=== PATIENT | female | born 1945 | race Caucasian/White ===

== ENCOUNTER 2021-11-26 18:13 | Emergency (ER) | payer OTHER ==
[~2021-11-26] VITALS: Ht 157.5 cm; Wt 94.8 kg
--- NOTE | 2021-11-26 18:16 | NUR ---
PT ANUPAM VIA GURNEY TO BED 12.
[2021-11-26 18:28] VITALS: BP 186/76
--- NOTE | 2021-11-26 19:17 | NUR ---
pt placed on bed lam for urine collection.
--- NOTE | 2021-11-26 19:17 | NUR ---
75 y/o female biba, pt presents to ed with c/o mid back pain and general body pain that started 2 weeks ago. pt states she was seen at [facility] 3 times for same s/s. a&ox4, states she is unable to ambulate. heart sounds regular and even, lung sounds bl clear. per odette daughter, she was notified by [facility] that pt was seen an hour prior to arrival here and was being treated for uti. pt denies any urinary s/s. daughter pt was upset and left before dx, meds and paperwork. rx antibiotic was sent to [facility] facility per odette daughter. ermd made aware of status. pmh: htn, hld, seizure, hernia, dm2 nka med: see list
[2021-11-26 20:01] LABS: BILIRUBIN,URINE NEGATIVE (NEGATIVE); BLOOD, URINE NEGATIVE (NEGATIVE); COLOR,URINE YELLOW (YELLOW); LEUKOCYTE ESTERASE ,URINE 1+ (NEGATIVE); NITRITE, URINE NEGATIVE (NEGATIVE); PH,URINE 7.5 (5.0-9.0); UGLUCOSE NEGATIVE (NEGATIVE)
[2021-11-26 20:04] LABS: APPEARANCE,URINE HAZY (CLEAR)
[2021-11-26] MEDS ORDERED: KETOROLAC 30 MG/ML VIAL IM ONE (20:10)
[2021-11-26 20:16] LABS: RBC,URINE NONE SEEN /HPF (0-5)
--- NOTE | 2021-11-26 20:18 | NUR ---
RED WAN called her family.
[2021-11-26] MEDS ORDERED: hydrALAZINE 20 MG/ML VIAL IM ONE (20:20)
--- NOTE | 2021-11-26 20:22 | NUR ---
RED WAN explain results and treatment plans.
--- NOTE | 2021-11-26 20:52 | NUR ---
Patient 's family at bedside.
[2021-11-26 21:05] VITALS: BP 164/81
--- NOTE | 2021-11-26 21:05 | NUR ---
Patient discharged with v/s stable. Written and verbal after care instructions given and explained. Patient verbalized understanding. Wheel Chair Assisted with to car. All questions addressed prior to discharge. Advised to follow up with PMD.
== END 2021-11-26 21:05 | disposition home or self-care (01) ==
LOC: MED 18:13
DX: M54.6 Pain in thoracic spine (principal); N39.0 Urinary tract infection, site not specified; I10 Essential (primary) hypertension; E11.9 Type 2 diabetes mellitus without complications
CPT/HCPCS: 81001; 87086; 96372; 99285; J0360; J1885; 93005